=== PATIENT | female | born 1960 | race Hispanic/Latino ===

== ENCOUNTER 2017-01-15 09:13 | Outpatient (CLI) | payer MEDICARE ==
--- NOTE | 2017-01-15 10:46 | Mammography Report ---
BONE DEXA:01/15/17 09:13:00 CLINICAL: Postmenopausal. COMPARISON: 01/14/14 TECHNIQUE: Two site bone DEXA performed on an Hologic scanner. FINDINGS: The average BMD of the lumbar spine L1-L4 is 0.940g/cm squared with a T-score of -1.0 and a Z-score of +0.1. This compares to 0.976g/cm squared on the last exam and represents a -3.7% change from the previous study. The average BMD of the right hip is 0.804g/cm squared with a T-score of -1.1 and a Z-score of -0.5. This compares to 0.862g/cm squared on the last exam and represents a -6.7% change from the previous study. The femoral neck BMD is 0.676g/cm squared with a T score of -1.6 and a Z score of -0.5. IMPRESSION: 1. WHO classification: Normal with average fracture risk based on spine measurements. A modest decline in spine BMD compared to the last exam. 2. WHO classification: Osteopenia with increased fracture risk based on right femoral neck measurements. A moderate decline in right hip BMD compared to the last exam. RECOMMENDATION: Clinical correlation and routine screening. DEFINITIONS: BMD = Bone Mineral Density T-score = BMD related to mean peak bone mass of young adult (mean expressed in Standard Deviation) Z-score = Age matched BMD expressed in SD World Health Organization (WHO) Diagnostic Criteria Normal T-score > -1 SD Osteopenia T-score between -1 and -2.4 SD Osteoporosis T-score -2.5 SD or below NOTE: BMD is not the only risk factor for fracture; also consider factors such as the patient's age, risk of falling, previous osteoporotic fracture, family history of osteoporotic fractures, current smoker, and low body weight. Z-scores are not calculated if >80 years of age.
== END 2017-01-15 09:14 | disposition home or self-care (01) ==
LOC: SPVWC 09:13
PROVIDERS: ATTEND Internal Medicine Hematology & Oncology
DX: M85.88 Other specified disorders of bone density and structure, other site (principal); Z78.0 Asymptomatic menopausal state
CPT/HCPCS: 77080

== ENCOUNTER 2019-01-20 13:21 | Outpatient (CLI) | payer MEDICARE ==
--- NOTE | 2019-01-21 11:10 | Mammography Report ---
BONE DEXA CLINICAL: Postmenopausal and history of breast cancer. TECHNIQUE: 3 site bone DEXA performed on an Hologic scanner. FINDINGS: The average BMD of the lumbar spine L1-L4 is 0.946g/cm squared with a T score of -0.9 and a Z score o f +0.3. The average total BMD of the right hip is 0.847 g/cm squared with a T score of -0.8and a Z score of 0 . The right femoral neck BMD is 0.676 g/cm squared with a T score of -1.6 and a Z score of -0.4. IMPRESSION: 1. WHO classification: Normal with average fracture risk based on spine measurements. 2. WHO classification Osteopenia with increased fracture risk based on right femoral neck measurement s. RECOMMENDATION: Clinical correlation and routine screening. Definitions: BMD equal bone mineral density T score = BMD related to peak bone mass of young adult ([place]ill expressed an standard deviation) Z score = age-matched BMD expressed in SD World health organization (WHO) diagnostic criteria Normal T score greater than equal to 1 standard deviation Osteopenia T score between -1 and -2.4 standard deviation Osteoporosis T score -2.5 standard deviation or below. Note: BMD is not the only risk factor for fracture; also consider factors such as the patient's age, risk of falling, previous osteoporotic fracture, family history of osteoporotic fractures, current sm oker and low body weight. Z scores are not calculated if greater than 80 years of age. Signer Name: Ortiz Mack MD Signed: 01/21/2019 11:05 AM Workstation Name: [id number]
== END 2019-01-20 13:22 | disposition home or self-care (01) ==
LOC: SPVWC 13:21
PROVIDERS: ATTEND Internal Medicine Hematology & Oncology
DX: M85.88 Other specified disorders of bone density and structure, other site (principal); Z78.0 Asymptomatic menopausal state
CPT/HCPCS: 77080